=== PATIENT | male | born 1965 | race Two or more races ===

== ENCOUNTER 2021-07-18 09:00 | Emergency (ER) | payer MEDICARE, MEDICAID ==
[~2021-07-18] VITALS: Ht 188 cm; Wt 100.0 kg
[2021-07-18 09:17] VITALS: BP 134/93
== END 2021-07-18 12:38 | disposition left against medical advice (07) ==
LOC: ER 09:02
DX: M79.672 Pain in left foot (principal); Z53.21 Procedure and treatment not carried out due to patient leaving prior to being seen by health care provider